=== PATIENT | male | born 1990 ===

== ENCOUNTER 2017-01-15 12:32 | Emergency (ER) | payer SELFPAY ==
[2017-01-15] MEDS ORDERED: Gelfoam 12-7 ADSORBABL SPONGE* 1 EA SPONGE ONE (14:36)
--- NOTE | 2017-01-15 14:58 | UC ---
Hand/Wrist HPI - HPI Summary HPI Summary: LAST NIGHT (14 HOURS AGO) CUT PALM OF LEFT HAND ON TELEVISION SCREEN. LAST TENTANUS SHOT TWO YEARS AGO. - History Of Current Complaint Chief Complaint: UCRespiratory Stated Complaint: HAND LAC Time Seen by Provider: 01/15/17 13:08 Hx Obtained From: Patient Onset/Duration: Sudden Onset, Lasting Hours, Still Present Severity Initially: Moderate Severity Currently: Mild Character Of Pain: Dull Aggravating Factor(s): Movement, Flexion, Extension Alleviating: Nothing Associated Signs And Symptoms: Positive: Swelling. Negative: Weakness, Numbness /Tingling Related History: Dominant Hand Left - Allergies/Home Medications Allergies/Adverse Reactions: Allergies Allergy/AdvReac Type Severity Reaction Status Date / Time No Known Allergies Allergy Verified 01/15/17 13:38 PMH/Surg Hx/FS Hx/Imm Hx Previously Healthy: Yes Endocrine History Of: Denies: Diabetes, Thyroid Disease Cardiovascular History Of: Reports: Hypertension - NO MEDS Denies: Cardiac Disorders Respiratory History Of: Denies: COPD, Asthma GI/ History Of: Denies: Ulcer - Surgical History Surgical History: None - Family History Known Family History: Negative: Blood Disorder - Social History Occupation: Employed Full-time Lives: With Family Alcohol Use: Occasionally Substance Use Type: None Smoking Status (MU): Former Smoker Type: Cigarettes Amount Used/How Often: 1/2 PPD Length of Time of Smoking/Using Tobacco: 11+ YEARS - Immunization History Most Recent Tetanus Shot: 2015 Review of Systems Constitutional: Negative Skin: Other - LACERATION LEFT HAND Eyes: Negative ENT: Negative Respiratory: Negative Cardiovascular: Negative Gastrointestinal: Negative Genitourinary: Negative Motor: Negative Neurovascular: Negative Musculoskeletal: Negative Neurological: Negative Psychological: Negative All Other Systems Reviewed And Are Negative: Yes Physical Exam Triage Information Reviewed: Yes Appearance: Well-Appearing, No Pain Distress, Well-Nourished Vital Signs: Initial Vital Signs Temp 99.3 F 01/15/17 13:39 Pulse 92 01/15/17 13:39 Resp 16 01/15/17 13:39 BP 123/79 01/15/17 13:39 Pulse Ox 99 01/15/17 13:39 Vital Signs Reviewed: Yes Eye Exam: Normal ENT Exam: Normal ENT: Positive: Normal ENT inspection, Hearing grossly normal, Pharynx normal, TMs normal Dental Exam: Normal Neck exam: Normal Neck: Positive: Supple, Nontender, No Lymphadenopathy Respiratory Exam: Normal Respiratory: Positive: Chest non-tender, Lungs clear, Normal breath sounds, No respiratory distress, No accessory muscle use Cardiovascular Exam: Normal Cardiovascular: Positive: RRR, No Murmur, Pulses Normal Abdominal Exam: Normal Abdomen Description: Positive: Nontender, No Organomegaly Musculoskeletal Exam: Normal Musculoskeletal: Positive: Strength Intact, ROM Intact Neurological Exam: Normal Psychological Exam: Normal Psychological: Positive: Normal Response To Family Skin: Positive: Other - LACERATION 5CM X 4MM (WIDE) X 1MM DEEP (>14HOURS) PALM OF LEFT HAND Hand/Wrist Course/Dx - Course Course Of Treatment: DUE TO LENGTH OF INJURY (>14 HOURS) LACERATION CLEANED IRRIGATED AND GELFOAM APPLIED TO WOUND TO ALLOW FOR HEALING BY SECONDARY INTENTION. WOUND DRESSED PROPHYLACTIC ANTIBIOTICS PRESCRIBED - Differential Dx/Diagnosis Differential Diagnosis/HQI/PQRI: Cellulitis, Infection, Strain Provider Diagnoses: 5 CM LACERATION >14 HOURS (NO CLOSURE) TO LEFT HAND Discharge - Discharge Plan Condition: Stable Disposition: HOME Prescriptions: Cephalexin CAP* [Keflex CAP*] 500 mg PO QID #28 cap Patient Education Materials: Laceration Without Closure (ED) Referrals: [facility] [Outside] Images Hands: 1 - 5CM OLD LACERATION 1mm DEEP TO PALM OF LEFT HAND
== END 2017-01-15 15:18 | disposition home or self-care (01) ==
LOC: UCEAST 12:32
DX: S61.412A Laceration without foreign body of left hand, initial encounter (principal); W45.8XXA Other foreign body or object entering through skin, initial encounter; Y93.9 Activity, unspecified; Y92.9 Unspecified place or not applicable; Z87.891 Personal history of nicotine dependence
CPT/HCPCS: 99202; A9270-GY; G0463